=== PATIENT | male | born 1945 | race Caucasian/White ===

== ENCOUNTER 2022-03-20 14:14 | Emergency (ER) | payer OTHER ==
[~2022-03-20] VITALS: Ht 180.3 cm; Wt 74.8 kg
[~2022-03-20 14:14] MED LIST: ALENDRONATE SOD70 MG; ASPIR 8181 MG PO; ATORVASTATIN CA10 MG PO; CALCIUM PO; DETROL LA4 MG PO; LISINOPRIL30 MG PO; MEGA RED PO; METFORMIN HCL1000 MG PO; METOPROLOL SUCC50 MG PO; MULTIVITAMINS1 EAC6 PO; NABUMETONE750 MG PO; NITROSTAT0.4 MG PO; VITAMIN C PO
[2022-03-20 16:28] LABS: BASOPHILS % 0.2 % (0.0-1.0); EOSINOPHILS # (AUTO) 0.2 (0.0-0.4); EOSINOPHILS % 1.8 % (0.0-6.0); HEMATOCRIT 27.5 % (38.2-49.6); HEMOGLOBIN 8.9 g/dL (14.0-18.0); LYMPHOCYTES # (AUTO) 1.4 (1.0-3.2); LYMPHOCYTES % 13.5 % (18.0-39.1); MEAN CORPUSCULAR HEMOGLOBIN 33.5 pg (28-32); MEAN CORPUSCULAR HGB CONC 32.4 g/dL (31-35); MEAN CORPUSCULAR VOLUME 103.4 fL (81-99); MONOCYTES # (AUTO) 0.8 (0.2-0.8); MONOCYTES % 7.5 % (4.4-11.3); NEUTROPHILS # (AUTO) 7.8 (2.1-6.9); NEUTROPHILS % 76.6 % (38.7-80.0); PLATELET COUNT 273 x10e3/uL (140-360); RED BLOOD COUNT 2.66 x10e6/uL (4.3-5.7); RED CELL DISTRIBUTION WIDTH 12.7 % (11.7-14.4)
[2022-03-20 16:42] LABS: ALBUMIN 2.7 g/dL (3.5-5.0); ALBUMIN/GLOBULIN RATIO 0.9 (0.8-2.0); ANION GAP 16.5 mmol/L (8-16); CALCIUM 8.2 mg/dL (8.4-10.2); CREATININE, SERUM 1.12 mg/dL (0.72-1.25); POTASSIUM 3.5 mmol/L (3.5-5.1)
[2022-03-20] MEDS ORDERED: GABAPENTIN300 MG PO (18:26)
[2022-03-20 18:38] LABS: CLARITY,URINE SL CLOUDY (CLEAR); COLOR,URINE YELLOW (YELLOW); KETONES,URINE NEGATIVE (NEGATIVE); LEUKOCYTE ESTERASE ,URINE MODERATE (NEGATIVE); NITRITE,URINE NEGATIVE (NEGATIVE); PROTEIN,URINE DIPSTICK NEGATIVE (NEGATIVE); URINE UROBILINOGEN 2 mg/dL (0.2 - 1)
[2022-03-20 18:49] VITALS: BP 125/60
[2022-03-20 18:49] LABS: BACTERIA,URINE MODERATE /HPF; WBC,URINE (MAN) 21-50 /HPF (0-5)
[2022-03-20] MEDS ORDERED: CEFDINIR300 MG PO (19:15)
== END 2022-03-20 18:49 | disposition home or self-care (01) ==
LOC: ER 14:38
DX: M79.605 Pain in left leg (principal); M79.604 Pain in right leg; R60.9 Edema, unspecified; N39.0 Urinary tract infection, site not specified; J44.9 Chronic obstructive pulmonary disease, unspecified; I50.9 Heart failure, unspecified; I48.91 Unspecified atrial fibrillation; I25.10 Atherosclerotic heart disease of native coronary artery without angina pectoris; I25.2 Old myocardial infarction; Z86.73 Personal history of transient ischemic attack (TIA), and cerebral infarction without residual deficits; Z95.810 Presence of automatic (implantable) cardiac defibrillator; Z95.1 Presence of aortocoronary bypass graft
CPT/HCPCS: 36415; 71045; 80053; 81001; 83880; 84484; 85025; 87086; 87186; 93005; 93970; 99284